=== PATIENT | male | born 1960 | race Caucasian/White ===

== ENCOUNTER 2016-06-21 13:10 | Day surgery (SDC) | payer OTHER ==
[~2016-06-21] VITALS: Ht 177.8 cm; Wt 138.0 kg
--- NOTE | 2016-06-21 07:35 | PCM.HPANE ---
Patient Data Surgeon Admitting Provider: Attending Provider:Manfred Browne MD Primary Care Physician:Lyndsey Turpin MD Other Provider:Camille Mcclainingham Anesthesia Reason for Visit Colon Screening, Epigastric Pain Ht/WT & BMI Body Mass Index Allergies Coded Allergies: No Known Allergies (Verified , 03/04/05) Past Anesthesia History Anesthesia History: Denies:: Abnormal Airway, Difficult Intubation Diabetes History Hx Diabetes?: No MRSA MRSA: No Medications Hypertension Medication: No Home Meds Incl Beta Jacqui: Yes Date Beta Jacqui Taken: Jun 20, 2016 Time Beta Jacqui Taken: 12:00 Previous Beta Jacqui Dose >24: Give Dose Perioperatively Reported Medications Zolpidem 10 Mg Mocsmy14 Mg PO HS PRN For Insomnia Ref 0 06/20/16 Beclomethasone Dipropionate (Qvar)8.7 Gm Aer.w.adap1 Puff INHALATION BID #8.7 GM 06/20/16 oxyCODONE-Acetaminophen 10-325 mg 1 Each Tablet1 Tablet PO Q4H PRN For Pain Ref 0 06/20/16 oxyCODONE 5 Mg Capsule5 Mg PO Q4H PRN For Pain Ref 0 06/20/16 Omeprazole 20 Mg Capsule.dr20 Mg PO DAILY Ref 0 06/20/16 Metoprolol Succinate ER 200 Mg Tab.er.[id number] Mg PO DAILY Ref 0 06/20/16 Albuterol HFA (Proair HFA)8.5 Gm Hfa.aer.ad2 Puffs INHALATION Q4H #1 INHALER 06/20/16 History HEENT History: Denies:: Abnormal Airway Difficult Intubation Hearing Problem Hx of Heart Problems?: Yes Cardiovascular History: Positive for:: Hypertension Hx of Respiratory Problem?: Yes Respiratory History: Positive for:: Asthma (Albuterolol) Hx Neurologic Problems?: No Neurological History: Denies:: CVA Hx of GI Problems?: Yes Gastrointestinal History: Positive for:: Hepatitis (hepatitis C) Hx of Problems?: No Musculoskeletal History: Positive for:: Joint Replacement Psycho Social History: Positive for:: Anxiety Hx Depression Hx Surgeries?: Yes (right knee sugery) Hx Any Other Health Problems?: Yes History Blood Transfusions: Denies:: Blood Transfusions Hx Diabetes: No Hx Alcohol Use: Yes (rarely )Hx Substance Use: Yes Stop/Bang Treated for Sleep Apnea?: No Do You Have a CPAP Machine?: No B- Body Mass Index > 35 kg/m2: Yes A- Age over 50: Yes G- Gender Male: Yes BOBO Category 4 OutPt Procedure: Yes Risk Assessment Category Category 1A: Patient has history of documented sleep apnea, and HAS NOT received any narcotic, sedative or anesthesia administration during this stay. Category 1B: Patient has history of documented sleep apnea, and HAS received any narcotic , sedative or anesthesia administration during this stay Category 2: Patient has SUSPECTED Obstructive Sleep Apnea, and HAS received any narcotic , sedative or anesthesia administration during this stay. Category 3: Patient has SUSPECTED Obstructive Sleep Apnea and HAS NOT received narcotic, sedative or anesthesia administration during this stay. Category 4: Outpatient in Procedural Areas with known sleep apnea or who screen positive for High Risk via the STOP/BANG questionnaire. Exam Exam General Appearance: Alert, Oriented X3, Cooperative, No Acute Distress HEENT/AIRWAY: MP 2 Lungs: Clear to Auscultation, Normal Air Movement Heart: Exam Unremarkable, Regular Rate/Rhythm, No Murmurs/Rubs/Gallops Plan Impression Patient chart reviewed, patient interviewed and anesthestic plan with risks, benefits, and alternatives discussed, and informed consent obtained. ASA Physical Status: ASA3 Severe Disease (BMI 43) Anesthetic Plan: MAC Bene/Risks/Altern/Consents: Yes HP Complete Prior to Induction: Yes Jesus Parson MD Jun 21, 2016 07:35
[~2016-06-21 13:10] MED LIST: ALBU8.5H2 INHALATION; BECL8.7A6 INHALATION; Lactated Ringer's 1,000 ML IV ONE; METO200T32 PO; OMEP20CA11 PO; OXYC-466 PO; OXYC5CAP4 PO; ZOLP10TA5 PO
[2016-06-21] MEDS ORDERED: fentaNYL-PF 50 mCg/mL 2 mL Inj ONE (13:11)
[2016-06-21] MEDS ORDERED: Ketamine 10 mg/mL 20 mL Inj ONE (13:11)
[2016-06-21 13:21] VITALS: BP 179/95; PULSE 98; RESP 14; O2SAT 96
[2016-06-21] MEDS ORDERED: Lactated Ringer's 1,000 ML IV SCH (14:44)
[2016-06-21] MEDS ORDERED: MetoCLOpramide 5 mg/mL 2 mL Inj IVPUSH PRN (14:45)
[2016-06-21] MEDS ORDERED: Ondansetron 2 mg/mL 2 mL Inj IVPUSH PRN (14:45)
[2016-06-21 15:27] VITALS: BP 114/72; PULSE 76; RESP 17; O2SAT 93
[2016-06-21 15:35] VITALS: BP 109/87; PULSE 75; RESP 17; O2SAT 94
--- NOTE | 2016-06-21 15:42 | PCM.ANEP2 ---
Post Anesthesia Evaluation ASA/CMS Post Anesthesia VS in Patient's Normal Range?: Yes Resp Stable; Airway Patent?: Yes CV Function & Hydration Stable: Yes Mental Status Recovered?: Yes Pain control Satisfactory?: Yes N/V Control Satisfactory?: Yes Jesus Parson MD Jun 21, 2016 15:42
--- NOTE | 2016-06-21 15:42 | PCM.ANEP1 ---
Post Anesthesia Phase 1 PACU Phase 1 Assessment Vital Signs Vital Signs Date Time Temp Pulse Resp B/P Pulse Ox O2 Delivery O2 Flow Rate FiO2 06/21/16 15:27 76 17 114/72 93 Room Air 06/21/16 13:21 35.7 98 14 179/95 96 Room Air Anesthetic Administered: MAC Level of Alertness: Awake, talking EASTMAN's with Equal Strength: Yes Pain: No Nausea or Vomiting: No Oxygen Delivery: Nasal Cannula Lungs: Clear to Auscultation, Normal Air Movement Dermatome Level: Full Sensation Jesus Parson MD Jun 21, 2016 15:41
[2016-06-21 15:45] VITALS: BP 112/74; PULSE 75; RESP 17; O2SAT 94
--- NOTE | 2016-06-21 16:04 | ENDO ---
[address] [address] ENDOSCOPY PROCEDURE PATIENT: NOEL AWAN : 1960 MR#: [id number] ADMIT: 06/21/2016 JOB ID: [id number] DATE OF SERVICE: 06/21/2016 PRIMARY PROVIDER: Lyndsey Turpin MD. PROCEDURE: 1. Esophagogastroduodenoscopy with biopsy. 2. Colonoscopy with cold forceps polypectomies. INDICATIONS: A 56-year-old male with chronic dyspepsia, intermittent. EGD is pursued to exclude Schroeder's and that this may be occult reflux. He additionally has a family history of colon cancer in his dad in his 40s. Reports for colon cancer screening. EQUIPMENT: GIF-H180 and a PCF-H180AL. SEDATION: Monitored anesthesia as provided by Dr. Jesus Parson. COMPLICATIONS: None identified. BOWEL PREPARATION: Fair, at best. PROCEDURE INFORMATION: After the risks and benefits were explained, written and verbal informed consent was obtained. The patient was brought into the endoscopy suite and placed into the left lateral decubitus position. Sedation was achieved as above. Sedation was achieved as above. The scope was introduced into the mouth through the bite block, and advanced under direct visualization to the second portion of the duodenum. The scope was slowly withdrawn to carefully examine the mucosa for any defects or lesions. Retroflexed views were accomplished in the stomach. The stomach was decompressed. The scope removed from the patient who tolerated the procedure well. The patient was then turned around. A digital rectal examination accomplished. No significant pathology appreciated apart from some mild internal hemorrhoids. The scope was introduced into the rectum and advanced under direct visualization to the level of the cecum, as identified by the appendiceal orifice and ileocecal valve. The scope was slowly withdrawn to carefully examine the mucosa for any defects or lesions. Multiple direct views were made through the dentate line for exclusion of pathology. The colon was decompressed. The scope removed from the patient who tolerated the procedure well. FINDINGS: 1. Duodenum: No pathology from the bulb through to the second portion. 2. Stomach: No outlet obstruction. No ulcers. No mass lesions. Minimal nonspecific gastropathy identified throughout. Retroflexed views of the LES were unremarkable. 3. Esophagus: The squamocolumnar junction correlated with the top of the gastric folds. The GE junction was at 43 cm from the incisors. No acute erosive changes. No strictures. No mass lesions. 4. Colon: The patient had three diminutive polyps removed with cold forceps from the rectum. Otherwise, no significant pathology was appreciated throughout within the limitations of bowel prep. There were some segments that had retained solid stool debris in the right colon. Some of these areas could not be fully cleansed and thus, small polyps could have been overlooked. ENDOSCOPIC DIAGNOSES: 1. Gastropathy. 2. Rectal polyps. 3. Hemorrhoids. RECOMMENDATIONS: 1. Await histopathology. 2. Repeat colonoscopy in three years. If adenomatous are found, five years if all of these are hyperplastic. 3. Surveillance EGD is not anticipated.
--- NOTE | 2016-06-23 16:21 | PATH ---
SURGICAL PATHOLOGY Attending Physician:Ruth Kowalski CASE STATUS: Signed Out PATIENT NAME: NOEL AWAN PID: [id number] : 1960 DATE COLLECTED:06/21/2016 00:00 SPECIMEN: 1: Gastric, Biopsy 2: Rectum, Biopsy CLINICAL HISTORY: 1). RANDOM GASTRIC BIOPSY 2). RECTAL POLYPS X3 FINAL DIAGNOSIS: 1.STOMACH, RANDOM BIOPSIES: BODY-TYPE MUCOSA WITH NO DIAGNOSTIC ABNORMALITY. Negative for Helicobacter pylori organisms. Negative for intestinal metaplasia. Negative for dysplasia and malignancy. 2.RECTUM, POLYPS, BIOPSIES: TUBULAR ADENOMA IN 1 OF 3 FRAGMENTS. HYPERPLASTIC POLYP IN 2 FRAGMENTS. ICD10 CODE D12.8 GROSS DESCRIPTION: The specimen is received in two formalin filled containers labeled with the patient's name. 1). The specimen is sublabeled "random gastric" and consists of a 0.5 x 0.3 x 0.2 CM portion of tissue which is entirely submitted in cassette 1A. 2). The specimen is sublabeled "rectal polyps X3" and consists of 3 portions of tissue which aggregate to 0.4 x 0.4 x 0.3 CM. The specimen is entirely submitted in cassette 2A. 06/22/2016 [facility] MICRO DESCRIPTION: See diagnosis. ICD-9 CODES: CPT CODES: 1: 54720 2: 09419 Electronically Signed Out Marci Bauer MD [facility] Pathology [facility] [address], [place] [address] Technical component performed at [facility], [facility] [address], [place], [address]
== END 2016-06-21 23:59 | disposition home or self-care (01) ==
LOC: END 13:10
PROVIDERS: ATTEND Internal Medicine Gastroenterology
DX: Z12.11 Encounter for screening for malignant neoplasm of colon (principal); D12.8 Benign neoplasm of rectum; K64.8 Other hemorrhoids; Z80.0 Family history of malignant neoplasm of digestive organs; K31.9 Disease of stomach and duodenum, unspecified; E78.5 Hyperlipidemia, unspecified; G47.00 Insomnia, unspecified; I10 Essential (primary) hypertension; F32.9 Major depressive disorder, single episode, unspecified; B18.2 Chronic viral hepatitis C; M54.9 Dorsalgia, unspecified; Z79.891 Long term (current) use of opiate analgesic
CPT/HCPCS: 43239; 45380; 88305; J2250; J3010; J7120